=== PATIENT | female | born 1945 | race Caucasian/White ===

== ENCOUNTER 2020-11-11 00:15 | Emergency (ER) | payer MEDICARE ==
[2020-11-11] MEDS ORDERED: Morphine 4 MG/ML VIAL ONE (02:10)
[2020-11-11] MEDS ORDERED: Ondansetron PF 4 MG/2 ML Vial ONE (02:10)
[2020-11-11] MEDS ORDERED: Cefepime 2 GM VIAL ONE (02:11)
[2020-11-11] MEDS ORDERED: Sodium Chloride 0.9% 100 ML ONE (02:12)
[2020-11-11 02:16] LABS: #Lymphocytes 1.1 thou/uL (1.20-3.40); #Monocytes 0.4 thou/uL (0.11-0.59); #Neutrophils 5.1 thou/uL (1.40-6.50); %Basophils 0.7 % (0.0-1.0); %Eosinophils 0.7 % (0.0-10.0); %Lymphocytes 16.9 % (21.0-51.0); %Monocytes 5.6 % (0.0-10.0); %Neutrophils 76.2 % (42.0-75.0); Hemoglobin 12.3 g/dL (12.0-16.0); Mean Corpuscular HGB CONC 33.6 g/dL (32.0-36.0); Mean Corpuscular Volume 95.3 fL (78.0-98.0); Platelet Count 169 thou/uL (130-400); RBC Distribution Width 13.3 % (11.5-14.5); Red Blood Cell (RBC) Count 3.84 mill/uL (4.20-5.40); White Blood Cell (WBC) Count 6.8 thou/uL (4.8-10.8)
[2020-11-11 02:52] LABS: ALT (SGPT) 12 U/L (8-55); Albumin 3.3 g/dL (3.4-4.8); Alkaline Phosphatase 104 U/L (40-110); Anion Gap 20 mmol/L (10-20); BUN (Urea Nitrogen) 47 mg/dL (9.8-20.1); Bilirubin, Total 0.8 mg/dL (0.2-1.2); CK (CPK) 36 U/L (29-168); Calc. Creatinine Clearance 0 mL/min (70-130); Calcium 8.8 mg/dL (7.8-10.44); Carbon Dioxide 17 mmol/L (23-31); Chloride 107 mmol/L (98-107); Glucose 113 mg/dL (83-110); Sodium 138 mmol/L (136-145)
[2020-11-11 03:07] LABS: Bilirubin Small (Negative); Blood, Urine Negative (Negative); Clarity Clear (Clear); Glucose, Urine (Dipstick) Negative (Negative); Ketone, Urine Trace mg/dL (Negative); Leukocyte Negative (Negative); Nitrite Negative (Negative); Protein, Urine (Dipstick) Negative (Neg-Trace)
[2020-11-11 03:12] LABS: AST (SGOT) 11 U/L (5-34); Potassium 4.7 mmol/L (3.5-5.1); Protein, Total 6.1 g/dL (5.8-8.1)
[2020-11-11 03:15] LABS: Globulin 2.8 g/dL (2.4-3.5); Potassium 4.7 mmol/L (3.5-5.1); Protein, Total 6.1 g/dL (5.8-8.1)
[2020-11-11 03:16] LABS: AST (SGOT) 11 U/L (5-34)
[2020-11-11] MEDS ORDERED: Nystatin Powder 15 GM BOT TOP SCH ×2 (03:30→09:00)
== END 2020-11-11 04:40 | disposition short-term general hospital (02) ==
LOC: BURERS 00:15
DX: L03.116 Cellulitis of left lower limb (principal); N28.9 Disorder of kidney and ureter, unspecified; M79.3 Panniculitis, unspecified; B48.8 Other specified mycoses; I87.8 Other specified disorders of veins; E11.621 Type 2 diabetes mellitus with foot ulcer; L97.429 Non-pressure chronic ulcer of left heel and midfoot with unspecified severity; S80.819A Abrasion, unspecified lower leg, initial encounter; I10 Essential (primary) hypertension; E78.5 Hyperlipidemia, unspecified; Z79.899 Other long term (current) drug therapy; Z79.84 Long term (current) use of oral hypoglycemic drugs
CPT/HCPCS: 51702; 80053; 81003; 82550; 83605; 84155; 84450; 85025; 87040; 87086; 96365; 96367; 96375; J0692; J2270; J2405; J3370; J3490

== ENCOUNTER → 2024-06-12 | Emergency (ER) | payer MEDICARE ==
[~2024-06-12] MED LIST: Ipratropium/Albuterol 3 ML NEB ONE; predniSONE 20 MG TAB ONE
== END ==
LOC: BURERS 00:50
DX: J06.9 Acute upper respiratory infection, unspecified (principal); E11.51 Type 2 diabetes mellitus with diabetic peripheral angiopathy without gangrene; I10 Essential (primary) hypertension
CPT/HCPCS: 71045; J7512; J7620

== ENCOUNTER 2024-07-24 15:10 | Emergency (ER) | payer MEDICARE ==
[2024-07-24] MEDS ORDERED: methylPREDNISolone Sod Succ/PF 125 MG/2 ML VIAL ONE (15:31)
== END 2024-07-24 15:53 | disposition home or self-care (01) ==
LOC: BURERS 15:10
DX: M54.31 Sciatica, right side (principal); E11.9 Type 2 diabetes mellitus without complications; I10 Essential (primary) hypertension
CPT/HCPCS: 96372; 99284; J2919